=== PATIENT | female | born 1965 | race African-American/Black ===

== ENCOUNTER 2016-08-26 02:37 | Emergency (ER) | payer SELFPAY ==
[~2016-08-26] VITALS: Ht 177.8 cm; Wt 99.8 kg
[~2016-08-26 02:37] MED LIST: ASPI81TA9 PO; ATOR20TA PO; GLYB5TAB3 PO; INSU100C SQ; INSU100C4 SQ; INSU100V8 SQ; LISI2.5T PO; ONDA4TAB10 SL
[2016-08-26 02:53] VITALS: BP 144/87
--- NOTE | 2016-08-26 03:06 | PHYS DOC ---
Past Medical History Past Medical History: Asthma, Depression, Diabetes-Type II, Hypertension, UTI Additional Past Medical Histor: neuropathy,sinusitis,obesity Past Surgical History: , Hysterectomy Alcohol Use: None Drug Use: None Adult General Chief Complaint Chief Complaint: BLOOD SUGAR PROBLEM [facility] HPI Patient is a 50 year old female who presents with concern of hyperglycemia. She is about to run out of insulin and she was told by the pharmacy that she must see her doctor prior to refill. She cannot see her doctor until 09/06/16. She notes calling the clinic and not being able to get appointment sooner. She states she has had nausea today, but no other symptoms. She has no current nausea. She denies emesis, diarrhea, polyuria, polydipsia, abd pain, f/c. Review of Systems Review of Systems Constitutional: Denies fever or chills [] Eyes: Denies change in visual acuity, redness, or eye pain [] HENT: Denies nasal congestion or sore throat [] Respiratory: Denies cough or shortness of breath [] Cardiovascular: No additional information not addressed in HPI [] GI: Denies abdominal pain, vomiting, bloody stools or diarrhea [] : Denies dysuria or hematuria [] Musculoskeletal: Denies back pain or joint pain [] Integument: Denies rash or skin lesions [] Neurologic: Denies headache, focal weakness or sensory changes [] Endocrine: Denies polyuria or polydipsia [] Allergies Allergies Allergies Coded Allergies Type Severity Reaction Last Updated Verified No Known Drug Allergies 01/26/14 No Physical Exam Physical Exam Constitutional: Well developed, well nourished, no acute distress, non-toxic appearance. [] HENT: Normocephalic, atraumatic, bilateral external ears normal, oropharynx moist, nose normal. [] Eyes: PERRLA, EOMI. [] Neck: Normal range of motion, supple. [] Cardiovascular:Heart rate regular rhythm [] Lungs & Thorax: Bilateral breath sounds clear to auscultation [] Abdomen: Bowel sounds normal, soft, no tenderness. [] Skin: Warm, dry, no erythema, no rash. [] Back: Normal ROM. [] Extremities: No tenderness, ROM intact. [] Neurologic: Alert and oriented X 3, normal motor function, normal sensory function, no focal deficits noted. [] Psychologic: Affect normal, judgement normal, mood normal. [] Current Patient Data Vital Signs Vital Signs Date Time Temp Pulse Resp B/P Pulse Ox O2 Delivery O2 Flow Rate FiO2 08/26/16 02:53 98.1 79 16 144/87 97 Room Air 98.1 Lab Values Laboratory Tests Test 08/26/16 02:47 Glucose (Fingerstick) 164mg/dL (70-99) H Course & Med Decision Making Course & Med Decision Making Pertinent Labs and Imaging studies reviewed. (See chart for details) POC glucose slightly high. Discussed with [facility] pharmacy in [facility] that she needs refills. She will go to pharmacy for refills. Return precautions given. She understood and agrees with plan. Dragon Disclaimer Dragon Disclaimer This electronic medical record was generated, in whole or in part, using a voice recognition dictation system. Departure Departure Impression: Primary Impression: Hyperglycemia Disposition: 01 HOME, SELF-CARE Condition: STABLE Referrals: UNKNOWN PCP NAME (PCP) Patient Instructions: Hyperglycemia, [id number] Additional Instructions: Follow-up with your primary care doctor. Return for any concerns. Anh MONTOYA MD Aug 26, 2016 03:06
== END 2016-08-26 03:36 | disposition home or self-care (01) ==
LOC: ER 02:37
DX: E11.65 Type 2 diabetes mellitus with hyperglycemia (principal); E11.40 Type 2 diabetes mellitus with diabetic neuropathy, unspecified; I10 Essential (primary) hypertension; J45.909 Unspecified asthma, uncomplicated; E66.9 Obesity, unspecified; Z68.31 Body mass index [BMI] 31.0-31.9, adult; Z87.440 Personal history of urinary (tract) infections; Z79.4 Long term (current) use of insulin
CPT/HCPCS: 82947; 99282

== ENCOUNTER 2017-08-14 16:21 | Emergency (ER) | payer SELFPAY ==
[2017-08-14] MEDS: BENZONATATE 100 MG CAPSULE. PO (17:22)
[2017-08-14] MEDS: ACETAMINOPHEN 500 MG TABLET PO (17:22)
[2017-08-14 17:35] LABS: INFLUENZA A PATIENT NEGATIVE (NEGATIVE); INFLUENZA B PATIENT NEGATIVE (NEGATIVE); OBC FLU VALID
[2017-08-14 17:36] LABS: BILIRUBIN,URINE NEGATIVE (NEG); CLARITY,URINE CLEAR; COLOR,URINE YELLOW; GLUCOSE,URINE 100 mg/dL (NEG); NITRITE,URINE NEGATIVE (NEG); PROTEIN,URINE NEGATIVE (NEG-TRACE)
[2017-08-14 17:50] LABS: RBC,URINE OCC /HPF (0-2); WBC,URINE OCC /HPF (0-4)
[2017-08-14 17:51] LABS: BACTERIA,URINE 0 /HPF (0-FEW); SQUAMOUS EPITHELIAL CELL,UR FEW /LPF
[2017-08-14 18:14] LABS: ADD MAN DIFF? NO
[2017-08-14 18:16] LABS: BASO % 1 % (0-3); EOS % 0 % (0-3); HEMATOCRIT 41.1 % (36.0-47.0); HEMOGLOBIN 13.7 g/dL (12.0-15.5); LYMPH # 1.2 x10^3/uL (1.0-4.8); LYMPH % 16 % (24-48); MEAN CORPUSCULAR HEMOGLOBIN 27 pg (25-35); MEAN CORPUSCULAR HGB CONC 33 g/dL (31-37); MEAN CORPUSCULAR VOLUME 82 fL (79-100); MONO % 14 % (0-9); NEUT % 69 % (31-73); PLATELET COUNT 252 x10^3/uL (140-400); RED BLOOD COUNT 5.05 x10^6/uL (3.50-5.40); RED CELL DISTRIBUTION WIDTH 13.2 % (11.5-14.5); WHITE BLOOD COUNT 7.2 x10^3/uL (4.0-11.0)
[2017-08-14 18:27] LABS: ANION GAP 13 (6-14); BLOOD UREA NITROGEN 9 mg/dL (7-20); BUN/CREATININE RATIO 11 (6-20); CALCIUM 8.8 mg/dL (8.5-10.1); CARBON DIOXIDE 26 mmol/L (21-32); CHLORIDE 98 mmol/L (98-107); CREATININE 0.8 mg/dL (0.6-1.0); GFR 92.2; GLUCOSE 210 mg/dL (70-99); POTASSIUM 3.8 mmol/L (3.5-5.1); SODIUM 137 mmol/L (136-145)
[2017-08-14 18:33] LABS: ALBUMIN 3.5 g/dL (3.4-5.0); ALBUMIN/GLOBULIN RATIO 0.8 (1.0-1.7); ALK PHOS 85 U/L (46-116); ALT (SGPT) 45 U/L (14-59); AST (SGOT) 31 U/L (15-37); TOTAL BILIRUBIN 0.3 mg/dL (0.2-1.0); TOTAL PROTEIN 7.7 g/dL (6.4-8.2)
[2017-08-15 07:28] LABS: NEGATIVE OBC STREP NEG; POSITIVE OBC STREP POS
== END 2017-08-14 18:42 | disposition home or self-care (01) ==
LOC: ER 16:21
DX: J18.1 Lobar pneumonia, unspecified organism (principal); J02.9 Acute pharyngitis, unspecified; E78.00 Pure hypercholesterolemia, unspecified; I10 Essential (primary) hypertension; E66.9 Obesity, unspecified; E11.40 Type 2 diabetes mellitus with diabetic neuropathy, unspecified; Z68.41 Body mass index [BMI] 40.0-44.9, adult; Z90.710 Acquired absence of both cervix and uterus; Z95.5 Presence of coronary angioplasty implant and graft
CPT/HCPCS: 36415; 71046; 80053; 81001; 85025; 87070; 87804; 87804-59; 87880; 99285-25

== ENCOUNTER 2017-08-17 16:25 | Emergency (ER) | payer BC ==
[2017-08-17] MEDS: IPRATRPIUM/ALBUTEROL 0.5/2.5MG 3 ML NEBU. NEB (17:19)
[2017-08-17] MEDS: predniSONE 20 MG TABLET PO (17:30)
== END 2017-08-17 17:31 | disposition home or self-care (01) ==
LOC: ER 16:25
DX: J18.9 Pneumonia, unspecified organism (principal); J02.9 Acute pharyngitis, unspecified; J45.909 Unspecified asthma, uncomplicated; E11.40 Type 2 diabetes mellitus with diabetic neuropathy, unspecified; E78.00 Pure hypercholesterolemia, unspecified; I10 Essential (primary) hypertension; E66.9 Obesity, unspecified; Z68.41 Body mass index [BMI] 40.0-44.9, adult; Z95.5 Presence of coronary angioplasty implant and graft; Z90.710 Acquired absence of both cervix and uterus
CPT/HCPCS: 94640; 99283-25; J7512; J7620

== ENCOUNTER 2019-07-23 07:47 | Emergency (ER) | payer SELFPAY ==
[2017-08-17 16:53] VITALS: BP 174/93
[~2019-07-23 07:47] MED LIST changes: +ASPI-612 PO; -ASPI81TA9 PO; +AZIT250T PO; +BENZ100C PO; +DOXY100C2 PO; +PRED-220 PO; +PROAIR RESPICL90 MCG IH
== END 2019-07-23 08:52 | disposition left against medical advice (07) ==
LOC: ER 07:47
DX: R50.9 Fever, unspecified (principal); Z53.21 Procedure and treatment not carried out due to patient leaving prior to being seen by health care provider

== ENCOUNTER 2020-12-18 16:47 | Emergency (ER) | payer BC, OTHER ==
[~2020-12-18] VITALS: Ht 157.5 cm; Wt 100.0 kg
[~2020-12-18 16:47] MED LIST changes: -ASPI-612 PO; +ASPI-886 PO; +INSU100V13 SQ; +INSU100V6 SQ; +METO50TA6 PO
--- NOTE | 2020-12-18 18:30 | PHYS DOC ---
Past Medical History Past Medical History: Asthma, Diabetes-Type II, High Cholesterol, Hypertension Additional Past Medical Histor: neuropathy,sinusitis,obesity Past Surgical History: , Hysterectomy Additional Past Surgical Histo: CARDIAC STENT Smoking Status: Never Smoker Alcohol Use: None Drug Use: None General Adult EDM: Chief Complaint: HEADACHE HPI: HPI: Patient is a 55 year old female past medical history of diabetes and hypertension presents with the chief complaint of headache and nausea and vomiting. Patients headache has been on and off x 1 week. Pain is located on the top of her head. For the last 2 days patient has had associated nausea and vomiting. Patient states she has not been able to keep anything down-- including her medications. Patients blood pressure during my exam was >200/100. Patient had her covid pfizer vaccine on November 19-- since then patient states she has felt short of breath with a cough and occasional cough. Patient states she get short of breath with exertion. Review of Systems: Review of Systems: Review of systems: Constitutional symptoms- No fever, no chills. Eyes- No Discharge, No Visual Loss Respiratory symptoms- Positive shortness of breath, No wheezing, Positive Dyspnea on Exertion Cardiovascular Systems; Positive chest pain, No Palpitations, No syncope Gastrointestinal symptoms: NO abdominal pain, Positive nausea, Positive vomiting no diarrhea. Genitourinary symptoms: No dysuria. Musculoskeletal symptoms: No back pain No extremity pain. NEUROLOGICAL Symptoms: positive headache, no generalized weakness; No focal Weakness Heart Score: C/O Chest Pain: N/A Risk Factors: Risk Factors: DM, Current or recent (<one month) smoker, HTN, HLP, family history of CAD, obesity. Risk Scores: Score 0 - 3: 2.5% MACE over next 6 weeks - Discharge Home Score 4 - 6: 20.3% MACE over next 6 weeks - Admit for Clinical Observation Score 7 - 10: 72.7% MACE over next 6 weeks - Early Invasive Strategies Current Medications: Current Medications Medications (Trade) Dose Ordered Sig/Cyndy Start Time Stop Time Status Last Admin Dose Admin Ondansetron HCl (Zofran) 4 mg 1X ONCE 12/18/20 18:30 12/18/20 18:31 UNV Sodium Chloride 1,000 ml @ 1,000 mls/hr 1X ONCE 12/18/20 18:30 12/18/20 19:29 UNV Allergies: Allergies: Allergies Coded Allergies Type Severity Reaction Last Updated Verified No Known Drug Allergies 01/26/14 No Physical Exam: PE: General: alert, no acute distress. Skin: warm, dry and intact. Head:: Normocephalic, atraumatic. Neck: Trachea midline. Eyes: EOMI, Normal conjunctiva, No drainage CARDIOVASCULAR: Regular rate and rhythm RESPIRATORY: No respiratory distress Back: Full range of motion. MUSCULOSKELETAL: Full range of motion of bilateral upper and lower extremities. GASTROINTESTINAL: Abdomen soft without rebound or guarding. NEUROLOGICAL: Alert and noted to person, place and time. No neurological deficits observed Psychiatric: Cooperative. Normal judgment Current Patient Data: Vital Signs: Vital Signs Date Time Temp Pulse Resp B/P (MAP) Pulse Ox O2 Delivery O2 Flow Rate FiO2 12/18/20 17:40 98.2 106 22 166/86 (112) 97 Room Air 98.2 EKG: EKG: EKG performed at 1829 hrs. heart rate 91 sinus rhythm [] Radiology/Procedures: Radiology/Procedures: [] Impression: FINDINGS: The heart is not enlarged. Mediastinal and hilar contours are normal. No focal parenchymal airspace opacity. No pleural effusion or pneumothorax. IMPRESSION: 1. No radiographic evidence for acute cardiopulmonary process. Course & Med Decision Making: Course & Med Decision Making Pertinent Labs and Imaging studies reviewed. (See chart for details) [] Patient was evaluated for chief complaint. Work-up consisted of laboratory analysis radiologic imaging and EKG. Results reviewed and discussed with patient Treatment included morphine for her headache. Patient's nausea improved with Zofran. Patient received a liter IV fluids Patient states she feels well enough to go home. Patient will be discharged home with Zofran. Zee Disclaimer: Zee Disclaimer: This electronic medical record was generated, in whole or in part, using a voice recognition dictation system. Departure Departure Impression: Primary Impression: Headache Additional Impression: Nausea & vomiting Disposition: 20 Condition: STABLE Referrals: UNKNOWN PCP NAME (PCP) Patient Instructions: Migraine Headache, Nausea and Vomiting Scripts Ondansetron Hcl (ZOFRAN) 4 Mg Tablet 1 TAB PO Q6HRS, #20 TAB Prov: JAC DONNELLY DO 12/18/20 JAC DONNELLY I DO December 18, 2020 18:30
[2020-12-18 18:35] LABS: BASO % 0 % (0-3); EOS # 0.1 x10^3/uL (0.0-0.7); EOS % 1 % (0-3); HEMATOCRIT 43.4 % (36.0-47.0); HEMOGLOBIN 14.6 g/dL (12.0-15.5); LYMPH % 26 % (24-48); MEAN CORPUSCULAR HEMOGLOBIN 27 pg (25-35); MEAN CORPUSCULAR HGB CONC 34 g/dL (31-37); MEAN CORPUSCULAR VOLUME 80 fL (79-100); MONO # 0.6 x10^3/uL (0.0-1.1); MONO % 5 % (0-9); NEUT # 7.5 x10^3/uL (1.8-7.7); NEUT % 67 % (31-73); PLATELET COUNT 315 x10^3/uL (140-400); RED BLOOD COUNT 5.42 x10^6/uL (3.50-5.40); RED CELL DISTRIBUTION WIDTH 13.6 % (11.5-14.5); WHITE BLOOD COUNT 11.2 x10^3/uL (4.0-11.0)
[2020-12-18 18:45] LABS: CALCIUM 9.6 mg/dL (8.5-10.1); CREATININE 0.8 mg/dL (0.6-1.0); GFR 90.8; POTASSIUM 4.5 mmol/L (3.5-5.1)
[2020-12-18 18:52] LABS: ALBUMIN 4.2 g/dL (3.4-5.0); ALBUMIN/GLOBULIN RATIO 1.2 (1.0-1.7); TOTAL BILIRUBIN 0.4 mg/dL (0.2-1.0); TOTAL PROTEIN 7.8 g/dL (6.4-8.2)
[2020-12-18] MEDS ORDERED: IV NORMAL SALINE 1000ML BAG 1,000 ML IV ONE (19:00)
[2020-12-18] MEDS ORDERED: ONDANSETRON PF 4 MG/2 ML VIAL. IVP ONE ×2 (19:00→20:00)
--- NOTE | 2020-12-18 19:06 | RAD ---
EXAM: AP View of the chest DATE: 12/18/2020 6:57 PM INDICATION: Reason: COUGH SOB / Spl. Instructions: / History: COMPARISON: 05/01/2020 08/14/2017 FINDINGS: The heart is not enlarged. Mediastinal and hilar contours are normal. No focal parenchymal airspace opacity. No pleural effusion or pneumothorax. IMPRESSION: 1. No radiographic evidence for acute cardiopulmonary process. Electronically signed by: Trevor Monsivais MD (12/18/2020 7:03 PM) JOE
[2020-12-18 19:14] LABS: BILIRUBIN,URINE SMALL (NEG); CLARITY,URINE CLEAR; COLOR,URINE YELLOW; NITRITE,URINE NEGATIVE (NEG); PH,URINE 6.5 (<5.0-8.0); PROTEIN,URINE 100 mg/dL (NEG-TRACE)
[2020-12-18 19:25] LABS: BACTERIA,URINE FEW /HPF (0-FEW)
[2020-12-18 19:26] LABS: RBC,URINE 0 /HPF (0-2)
[2020-12-18] MEDS ORDERED: MORPHINE SULFATE 2 MG/ML VIAL. ONE (19:45)
[2020-12-18] MEDS ORDERED: MORPHINE SULFATE 2 MG/ML VIAL. IV ONE (20:15)
--- NOTE | 2020-12-18 20:25 | EKG ---
[facility] [address] [place] [id number] Test Date: 2020-12-18 Test Time: 18:29:18 Pat Name: SIMON SEE Department: Room: Gender: F [employer] Supervisor: : [id number] Requested By: JAC DONNELLY Order Number: [id number] Reading MD: Measurements Intervals [place] Rate: 91 P: 34 [place]: 150 QRS: 26 QRSD: 74 T: 52 QT: 388 QTc: 479 Interpretive Statements SINUS RHYTHM PROLONGED QT NO SPECIFIC ECG ABNORMALITIES RI6.02 No previous ECG available for comparison
[2020-12-18 20:28] VITALS: BP 189/101
[2020-12-18] MEDS ORDERED: ONDA4TAB7 PO (20:39)
== END 2020-12-18 21:01 ==
LOC: ER 16:47
DX: R51.9 Headache, unspecified (principal); R11.2 Nausea with vomiting, unspecified; R06.02 Shortness of breath; J45.909 Unspecified asthma, uncomplicated; E11.40 Type 2 diabetes mellitus with diabetic neuropathy, unspecified; E78.00 Pure hypercholesterolemia, unspecified; I10 Essential (primary) hypertension; E66.9 Obesity, unspecified; Z68.41 Body mass index [BMI] 40.0-44.9, adult
CPT/HCPCS: 36415; 71045; 80053; 81001; 84484; 85025; 87086; 93005; 96361; 96374; 96375; 96376; 99285; J2270; J2405; J7030